=== PATIENT | female | born 1995 | race Caucasian/White ===

== ENCOUNTER 2023-02-06 15:04 | Emergency (ER) | payer OTHER, SELFPAY ==
[2023-02-06 15:19] VITALS: BP 130/50; PULSE 74; RESP 20; TEMP 36.9; O2SAT 99; BMI 21.1
[2023-02-06 16:29] LABS: Bacteria Urine None Seen; Culture Indicated Urine Cult Not Indicated; RBC Urine 1-5/HPF (0-5/HPF); Squamous Epithelial Cell Urine None Seen (0-5/HPF); WBC Urine None Seen (0-5/HPF)
--- NOTE | 2023-02-06 17:35 | PC.NURSE ---
Patient very tearful in discussion of symtoms. Patient states concerns of being very emotional lately. I don't know if it depression or if I am or some sort of hormonal thing Patient provided PHQ9 form per [employer] [employer] request.
--- NOTE | 2023-02-06 17:36 | DI.US.S_ITS ---
PROCEDURE: US PELVIC COMPLETE INDICATIONS: RIGHT PELVIC PAIN TECHNIQUE: Real-time scanning was performed of the pelvic organs, with image documentation. Additional endovaginal scanning was necessary due to incomplete visualization of the adnexal and endometrial structures by transabdominal scanning. COMPARISON: None. FINDINGS: Uterus: Uterus is anteverted and normal in size at 7.4 x 3.6 x 4.2 cm. The myometrium is heterogeneous. The endometrium measures 5 mm combined thickness. The endometrial stripe is not well defined. Ovaries: The right ovary measures 3.5 x 2.3 x 1.7 cm, with a calculated ovarian volume of 7.3 cc. The left ovary measures 3.3 x 1.5 x 2.1 cm, with a calculated ovarian volume of 5.3 cc. The ovaries have a normal sonographic appearance. More than 12 follicles can be seen in each ovary. No adnexal masses are seen. Normal appearing arterial waveforms are confirmed to each ovary. Other: No pathologic free abdominal or pelvic fluid. IMPRESSION: Negative for ovarian torsion. More than 12 follicles can be seen involving each ovary, which is consistent with polycystic ovarian syndrome. A mild amount of free fluid can be seen within the pelvic cul-de-sac. The endometrial stripe is not well defined and there is a heterogeneous echotexture. Please consider adenomyosis. We strive to produce accurate, complete, and clear reports of imaging services. To assist us in improving patient care, this report was composed using standard report templates and voice recognition software. Therefore, it may contain abnormal punctuation, insertions and/or omissions. Occasional wrong-word or sound-alike substitutions may occur. Though we review the report and make efforts to correct it, we do recommend that the report be read carefully in proper context to recognize any text inaccuracies. Dictated by: Jose E Wade M.D. on 02/06/2023 at 17:18 Approved by: Jose E Wade M.D. on 02/06/2023 at 17:20
--- NOTE | 2023-02-06 17:51 | ED.ABDPAIN ---
HPI - Abdominal Pain <Jessie Wood PA-C - Last Filed: 02/07/23 14:03> General Chief Complaint: Abdominal Pain Stated Complaint: states infection all over, pain Time Seen by Provider: 02/06/23 15:59 Source: patient Mode of arrival: Ambulatory History of Present Illness HPI narrative: Patient is a 27-year-old female who presents with lower abdominal pain. Reports a history of very heavy painful periods, she had a surgical procedure for endometriosis in the removal of endometrial tissue several years ago, after which her periods were slightly better. She reports normally having periods every 10 days. Not had a period in 2 months, saw a healthcare provider about a week ago and was diagnosed with bacterial vaginosis and started on metronidazole. Despite taking these antibiotics, she is continued to have increasing lower abdominal pain and had nausea and vomiting over the weekend. She recently had unprotected sex and had a recent concern for potential /miscarriage. She endorses intermittent mild spotting 10 days ago and last night, as well as smelly chunky vaginal discharge. She is very tearful during our conversation and repeatedly states I do not know why I am like this, I just can not stop crying. I wonder if there is something wrong with my hormones. Related Data Previous Rx's Medication Instructions Recorded sertraline 50 mg tablet 50 mg PO DAILY #30 tabs 02/06/23 Allergies Allergy/AdvReac Type Severity Reaction Status Date / Time No Known Drug Allergies Allergy Unverified 12/15/21 10:05 Review of Systems <Jessie Wood PA-C - Last Filed: 02/07/23 14:03> Review of Systems ROS Unobtainable: All systems reviewed & are unremarkable except as noted in HPI and below Patient History <Jessie Wood PA-C - Last Filed: 02/07/23 14:03> Social History Smoking Status: Former smoker Smoking Status: Former smoker alcohol intake frequency: other Substance Use Type: marijuana Exam <Jessie Wood PA-C - Last Filed: 02/07/23 14:03> Narrative Exam Narrative: GENERAL: 27 year old patient appears stated age. Well-developed patient, teary during our discussion. NEURO: AOx3. HEAD: Atraumatic. Normocephalic. CARDIOVASCULAR: Regular rate and rhythm without murmurs, gallops, or rubs. RESPIRATORY: Clear to auscultation. Breath sounds equal bilaterally. No wheezes, rales, or rhonchi. GASTROINTESTINAL: Abdomen soft, nondistended, mild lower abdominal tenderness to palpation. No Hilliard sign, no tenderness over McBurney's. No CVA tenderness. PELVIC: Pelvic exam chaperoned by KRISTI Lowry. Normal external female genitalia with small amount of dried blood at the external introitus. Vaginal canal with moderate amount of dark red blood, cervix closed, no lesions but mildly friable. Swabs collected. Bimanual exam with focal tenderness in the right adnexa and mild cervical motion tenderness. No tenderness in the left adnexa. SKIN: No rash or erythema of visible areas Initial Vital Signs Initial Vital Signs: Vital Signs Temperature 98.5 F 02/06/23 15:19 Pulse Rate 74 02/06/23 15:19 Respiratory Rate 20 02/06/23 15:19 Blood Pressure 130/50 L 02/06/23 15:19 Pulse Oximetry 99 02/06/23 15:19 Oxygen Delivery Method Room Air 02/06/23 15:19 <DO Darion Flood Last Filed: 02/14/23 21:47> Initial Vital Signs Initial Vital Signs: Vital Signs Temperature 98.5 F 02/06/23 15:19 Pulse Rate 74 02/06/23 15:19 Respiratory Rate 20 02/06/23 15:19 Blood Pressure 130/50 L 02/06/23 15:19 Pulse Oximetry 99 02/06/23 15:19 Oxygen Delivery Method Room Air 02/06/23 15:19 Course <Jessie Wood PA-C - Last Filed: 02/07/23 14:03> Orders Ordered: Discontinued Medications Ondansetron HCl (Ondansetron 4 Mg Odt) 4 mg PO NOW PRN PRN Reason: Nausea And Vomiting Ondansetron HCl (Ondansetron 4 Mg/2 Ml Inj) 4 mg IV NOW PRN PRN Reason: Nausea And Vomiting Vital Signs Vital signs: Vital Signs - 8 hr 02/06/23 15:19 Temperature 98.5 F Pulse Rate 74 Respiratory Rate 20 Blood Pressure 130/50 L Pulse Oximetry 99 Oxygen Delivery Method Room Air <DO Darion Flood Last Filed: 02/14/23 21:47> Orders Ordered: Discontinued Medications Ondansetron HCl (Ondansetron 4 Mg Odt) 4 mg PO NOW PRN PRN Reason: Nausea And Vomiting Ondansetron HCl (Ondansetron 4 Mg/2 Ml Inj) 4 mg IV NOW PRN PRN Reason: Nausea And Vomiting Vital Signs Vital signs: Vital Signs - 8 hr 02/06/23 15:19 Temperature 98.5 F Pulse Rate 74 Respiratory Rate 20 Blood Pressure 130/50 L Pulse Oximetry 99 Oxygen Delivery Method Room Air MDM - Abdominal Pain <Jessie Wood PA-C - Last Filed: 02/07/23 14:03> Lab Data Labs: Lab Results 02/06/23 02/06/23 Range/Units 15:30 17:30 Urine RBC 1-5/hpf (0-5/HPF) Urine WBC None seen (0-5/HPF) Ur Squamous Epith Cells None seen (0-5/HPF) Urine Bacteria None seen (None) Ur Culture Indicated? Cult not indicated C.trachomatis Ampl DNA Negative (Negative) M. genitalium (PCR) Negative (Negative) N.gonorrhoeae Ampl DNA Negative (Negative) Point of care testing: Point of Care Testing Test Results Negative Urine Dip Bedside Urine Glucose Negative Bedside Urine Bilirubin - Negative Bedside Urine Ketone +/- 5 Urine Specific Eldridge 1.000 Bedside Urine Occult Blood +++ Bedside Urine pH 6.0 Bedside Urine Protein - Negative Bedside Urine Urobilinogen - Negative Bedside Urine Nitrite - Negative Bedside Urine Leukocytes - Negative Esterase Imaging Data US - abdomen: Radiologist's Impression: PROCEDURE:? US PELVIC COMPLETE ? INDICATIONS:? RIGHT PELVIC PAIN ? TECHNIQUE:? Real-time scanning was performed of the pelvic organs, with image documentation.? Additional endovaginal scanning was necessary due to incomplete visualization of the adnexal and endometrial structures by transabdominal scanning.? ? COMPARISON:? None. ? FINDINGS:? ?? Uterus:? Uterus is anteverted and normal in size at 7.4 x 3.6 x 4.2 cm. The myometrium is heterogeneous. ? The endometrium measures 5 mm combined thickness.? The endometrial stripe is not well defined.? ? Ovaries:? The right ovary measures 3.5 x 2.3 x 1.7 cm, with a calculated ovarian volume of 7.3 cc. The left ovary measures 3.3 x 1.5 x 2.1 cm, with a calculated ovarian volume of 5.3 cc. The ovaries have a normal sonographic appearance.? More than 12 follicles can be seen in each ovary.? No adnexal masses are seen. ? Normal appearing arterial waveforms are confirmed to each ovary.? ? Other:? No pathologic free abdominal or pelvic fluid. ? ? IMPRESSION:? Negative for ovarian torsion. ? More than 12 follicles can be seen involving each ovary, which is consistent with polycystic ovarian syndrome.? ? A mild amount of free fluid can be seen within the pelvic cul-de-sac. ? The endometrial stripe is not well defined and there is a heterogeneous echotexture.? Please consider adenomyosis.? ? We strive to produce accurate, complete, and clear reports of imaging services. To assist us in improving patient care, this report was composed using standard report templates and voice recognition software. Therefore, it may contain abnormal punctuation, insertions and/or omissions. Occasional wrong-word or sound-alike substitutions may occur. Though we review the report and make efforts to correct it, we do recommend that the report be read carefully in proper context to recognize any text inaccuracies. ? ? Dictated by: Jose E Wade M.D. on 02/06/2023 at 17:18 ? ? Approved by: Jose E Wade M.D. on 02/06/2023 at 17:20 ? MDM Narrative Medical decision making narrative: Multiple etiologies for patient's symptoms considered including, but not limited to: BV, PID, UTI, gonorrhea chlamydia, dysmenorrhea, miscarriage. Patient has a long history of gynecologic pain. Her story is concerning today for PID given increasing pain despite 6 days of metronidazole, after unprotected sex. Pelvic exam significant for right adnexal tenderness and cervical motion tenderness. Ultrasound with polycystic ovaries and concern for adenomyosis, which would explain her tenderness. She is also having more vaginal bleeding since coming to the emergency room, making it more likely that she just started her period. Her wet prep was negative, GC chlamydia pending. Her urine is reassuring. In the setting of her polycystic ovaries and concern for adenomyosis, I think PID is less likely. We will monitor pending studies and start treatment as Indicated. She is quite teary during our visit, she reports a history of PTSD and depression. She is previously taken Zoloft with good effect but stopped it several years ago. Her PHQ-9 score is 21, suspicious for severe depression. After discussion with patient, she agrees she would like to restart her Zoloft. I will write her for 3 months' worth, after which point she will need to have a primary care who can follow that and refill it as well as titrate the dose. I have provided her with multiple gynecology recommendations to seek further evaluation and treatment. Patient's symptoms improved over duration of stay with above-stated therapies. Findings and discharge diagnosis discussed with patient/family followed by verbalization of understanding Return precautions discussed with patient/family whom verbalize understanding of diagnosis and plan <Sharif Joseph, DO - Last Filed: 02/14/23 21:47> Lab Data Labs: Lab Results 02/06/23 02/06/23 Range/Units 15:30 17:30 Urine RBC 1-5/hpf (0-5/HPF) Urine WBC None seen (0-5/HPF) Ur Squamous Epith Cells None seen (0-5/HPF) Urine Bacteria None seen (None) Ur Culture Indicated? Cult not indicated C.trachomatis Ampl DNA Negative (Negative) M. genitalium (PCR) Negative (Negative) N.gonorrhoeae Ampl DNA Negative (Negative) Point of care testing: Point of Care Testing Test Results Negative Urine Dip Bedside Urine Glucose Negative Bedside Urine Bilirubin - Negative Bedside Urine Ketone +/- 5 Urine Specific Eldridge 1.000 Bedside Urine Occult Blood +++ Bedside Urine pH 6.0 Bedside Urine Protein - Negative Bedside Urine Urobilinogen - Negative Bedside Urine Nitrite - Negative Bedside Urine Leukocytes - Negative Esterase Discharge Plan Departure Patient Disposition: Home Clinical Impression: Polycystic bilateral ovaries Abdominal pain Qualifiers: Abdominal location: right lower quadrant Qualified Code(s): R10.31 - Right lower quadrant pain Depression Qualifiers: Depression Type: major depressive disorder Major depression recurrence: recurrent Active/Remission status: currently active Major depression episode severity: moderate Qualified Code(s): F33.1 - Major depressive disorder, recurrent, moderate Instructions: DI for Depression -- Adult, Chronic Pelvic Pain-Female Activity Restrictions/Additional Instructions: *You have been diagnosed with abdominal pain, possibly associated with polycystic ovaries. You also scored quite high on the depression screening tool. Per our discussion, I will start prescription of Zoloft. I strongly suggest that you find a primary care doctor for re-evaluation of your depression and continuation of your therapy. Study showed that the combination of medication and therapy work better than either therapy or medication alone. I have included multiple resources for gynecologists, I suggest you try to schedule follow-up with one of them as soon as possible further evaluation of your polycystic ovaries on ultrasound today, your abdominal pain, your frequent menstrual cycle. Please call 911 or the crisis line if you feel like hurting yourself. [phone]?Suicide Lifeline ? *What to do: *Please continue to take your regular medications as directed. [x] New medication prescriptions sent to your pharmacy: [[facility]] [ ] New medication written as a paper prescription [ ] No new medications given *Please follow up with your primary care provider in 2-3 days, call for an appointment. Let them know you were seen in the Emergency Department and that we ask that you be seen in follow up. We will electronically transmit a record of today's note if your PCP is in our system *If you do not have a primary care provider please contact the [facility] Resource line at [phone]. They will ask some questions about your medical history and help get you set up with a doctor in the community. *Return to Emergency Department if you should have any new, worsening or concerning symptoms, such as [fever greater than 101 F, shaking chills, worsening pain, persistent vomiting or other concerning symptoms]. Prescriptions: New sertraline 50 mg tablet 50 mg PO DAILY Qty: 30 2RF Rx Instructions: please schedule follow-up with PCP for more refills and titration of dose. Referrals: April Nieto [Other] ([facility]) Razia Ruiz DO [Non-Staff] - Xochilt Winters MD [Physician] - Stand Alone Forms: Patient Portal/API <Sharif Joseph DO - Last Filed: 02/14/23 21:47> Cosign ED Attending Cosignature Attestation: Dr Joseph Co-Sign Statement: I was available for consultation during this patient's emergency department visit. This chart is signed by myself for administrative purposes only. I did not have direct contact with this patient during this visit. They were seen independently by the [facility].
[2023-02-06 18:57] VITALS: BP 128/76; PULSE 80; RESP 16; O2SAT 99
[2023-02-13 10:45] LABS: Chlamydia trachomatis Negative (Negative); Mycoplasma genitalium Negative (Negative); Neisseria gonorrhoeae Negative (Negative)
== END 2023-02-06 18:57 | disposition home or self-care (01) ==
PROVIDERS: Emergency Medicine; Emergency Provider Physician Assistant
DX: R10.31 Right lower quadrant pain (principal); F33.1 Major depressive disorder, recurrent, moderate; R10.2 Pelvic and perineal pain; E28.2 Polycystic ovarian syndrome
CPT/HCPCS: 76830; 76856; 81003; 81015; 81025; 87081; 87086; 87210; 87491; 87563; 87591; 93975; 99283; 99284

== ENCOUNTER → 2023-04-17 10:50 | Outpatient (CLI) | payer OTHER, SELFPAY | PROVIDERS: Visit Provider Nurse Practitioner Family | DX: N89.8 Other specified noninflammatory disorders of vagina (principal) | CPT/HCPCS: 87252 ==